=== PATIENT | female | born 1985 | race Caucasian/White ===

== ENCOUNTER 2016-04-10 19:14 | Emergency (ER) | payer MEDICAID ==
[2016-04-10] MEDS ORDERED: HYDROcod/ACETAM 5/325 MG TABLET PO STA (21:22)
[2016-04-10] MEDS ORDERED: HYDROcod/ACET 5/325 Prepack 6 PO ONE ×2 (21:22→21:37)
== END 2016-04-10 21:52 | disposition home or self-care (01) ==
DX: S96.911A Strain of unspecified muscle and tendon at ankle and foot level, right foot, initial encounter (principal); X50.9XXA Other and unspecified overexertion or strenuous movements or postures, initial encounter; Y93.01 Activity, walking, marching and hiking; Y92.410 Unspecified street and highway as the place of occurrence of the external cause; Y99.8 Other external cause status; Z87.891 Personal history of nicotine dependence

== ENCOUNTER 2017-06-16 08:52 | Outpatient (CLI) | payer MEDICAID ==
[2017-06-16 12:45] LABS: BASOPHILS % (AUTO) 0.5 %; EOSINOPHILS # (AUTO) 0.1 10^3/uL (0.0-0.7); EOSINOPHILS % (AUTO) 1.1 %; HGB - HEMOGLOBIN 13.4 g/dL (12.0-16.0); LYMPHOCYTES # (AUTO) 2.2 10^3/uL (1.5-3.5); LYMPHOCYTES % (AUTO) 27.5 %; MEAN CORPUSCULAR HEMOGLOBIN 29.2 pg (27.0-31.0); MEAN CORPUSCULAR HGB CONC 34.5 g/dL (32.0-36.0); MEAN CORPUSCULAR VOLUME 84.6 fL (81.0-99.0); MEAN PLATELET VOLUME 8.9 fL (7.9-10.8); MONOCYTES # (AUTO) 0.5 10^3/uL (0.0-1.0); MONOCYTES % (AUTO) 6.7 %; NEUTROPHILS % (AUTO) 64.2 %; PLT - PLATELET COUNT 224 10^3/uL (130-450); RED BLOOD COUNT 4.61 10^6/uL (4.20-5.40); RED CELL DISTRIBUTION WIDTH 13.9 % (12.0-15.0); WHITE BLOOD COUNT 7.8 x10^3/uL (4.8-10.8)
[2017-06-16 13:20] LABS: ALBUMIN 4.7 g/dL (3.2-5.5); ALBUMIN/GLOBULIN RATIO 1.5 (1.0-2.2); ALKALINE PHOSPHATASE 53 IU/L (42-121); ALT ALANINE AMINOTRANSFERASE 15 IU/L (10-60); AST ASPARTATE AMINOTRANSFERASE 19 IU/L (10-42); BILIRUBIN,TOTAL 0.5 mg/dL (0.2-1.0); BUN - BLOOD UREA NITROGEN 11 mg/dL (6-20); CALCIUM 9.4 mg/dL (8.5-10.3); CARBON DIOXIDE - CO2 25 mmol/L (21-32); CHLORIDE 107 mmol/L (101-111); CHOL/HDL RATIO 4.4 (<4.4); CHOLESTEROL 232 mg/dL; CREATININE 1.1 mg/dL (0.4-1.0); GFR - MDRD 58 (>89); GLUCOSE 74 mg/dL (70-100); HDL CHOLESTEROL 53 mg/dL; LDL CHOLESTEROL,CALCULATED 142 mg/dL; LDL/HDL RATIO 2.7 (<4.4); SODIUM 140 mmol/L (135-145); TOTAL PROTEIN 7.8 g/dL (6.7-8.2); VLDL CHOLESTEROL 37 mg/dL
== END 2017-06-16 08:53 | disposition home or self-care (01) ==
LOC: LAB.N 08:52
PROVIDERS: ATTEND Nurse Practitioner Gerontology
DX: Z13.9 Encounter for screening, unspecified (principal)
CPT/HCPCS: 36415; 80053; 80061; 83721; 84443; 85025

== ENCOUNTER 2018-03-06 21:37 | Outpatient (CLI) | payer MEDICAID | END 2018-03-06 21:38 | disposition critical access hospital (66) | LOC: EMS 21:37 | PROVIDERS: ATTEND Surgery | DX: M54.5 Low back pain (principal) | CPT/HCPCS: A0425; A0429; A0999 ==

== ENCOUNTER 2018-05-24 10:48 | Outpatient (CLI) | payer MEDICAID ==
[2018-05-24 11:27] LABS: BASOPHILS % (AUTO) 0.3 %; EOSINOPHILS # (AUTO) 0.1 10^3/uL (0.0-0.7); EOSINOPHILS % (AUTO) 1.5 %; HGB - HEMOGLOBIN 13.3 g/dL (12.0-16.0); LYMPHOCYTES % (AUTO) 27.8 %; MEAN CORPUSCULAR HEMOGLOBIN 28.1 pg (27.0-31.0); MEAN CORPUSCULAR HGB CONC 33.5 g/dL (32.0-36.0); MEAN CORPUSCULAR VOLUME 83.8 fL (81.0-99.0); MEAN PLATELET VOLUME 8.3 fL (7.9-10.8); MONOCYTES # (AUTO) 0.5 10^3/uL (0.0-1.0); MONOCYTES % (AUTO) 7.2 %; NEUTROPHILS # (AUTO) 4.5 10^3/uL (1.5-6.6); NEUTROPHILS % (AUTO) 63.2 %; PLT - PLATELET COUNT 244 10^3/uL (130-450); RED BLOOD COUNT 4.75 10^6/uL (4.20-5.40); RED CELL DISTRIBUTION WIDTH 15.4 % (12.0-15.0); WHITE BLOOD COUNT 7.1 x10^3/uL (4.8-10.8)
[2018-05-24 11:29] LABS: HCG UR QUAL NEGATIVE
== END 2018-05-24 10:49 | disposition home or self-care (01) ==
LOC: LAB 10:48
PROVIDERS: ATTEND Obstetrics & Gynecology
DX: Z01.812 Encounter for preprocedural laboratory examination (principal); N75.0 Cyst of Bartholin's gland
CPT/HCPCS: 36415; 81025; 85025

== ENCOUNTER 2018-05-26 10:08 | Day surgery (SDC) | payer MEDICAID ==
[2018-05-26] MEDS ORDERED: LACTATED RINGERS 1,000 ML IV ONE (10:13)
[2018-05-26 10:45] LABS: HCG UR QUAL NEGATIVE
--- NOTE | 2018-05-26 11:16 | ANESTHESIA ---
Pre-Anesthesia VS, & Labs - Diagnosis Recurrent bartholin's duct cyst - Procedure excision of bartholins duct cyst Vital Signs: Temp Pulse Resp BP Pulse Ox 36.8 C 92 12 121/83 H 96 05/26/18 10:32 05/26/18 10:32 05/26/18 10:32 05/26/18 10:32 05/26/18 10:32 Height 5 ft 6 in Weight (kg) 90 kg Body Mass Index 32.3 - NPO >8 hours - Is Patient ?: No - Lab Results Lab results reviewed: Yes Home Medications and Allergies Home Medications: Ambulatory Orders Naproxen 500 mg PO DAILY PRN 05/26/18 Sertraline [Zoloft] 200 mg ORAL DAILY 04/21/15 buPROPion [Wellbutrin Sr] 300 mg PO DAILY 03/06/18 Naproxen 500 mg PO DAILY PRN 05/26/18 Allergies/Adverse Reactions: Allergies Allergy/AdvReac Type Severity Reaction Status Date / Time No Known Drug Allergies Allergy Verified 05/25/18 09:40 Anes History & Medical History - Anesthetic History Anesthesia Complications: reports: No previous complications - Medical History Cardiovascular: reports: None Pulmonary: reports: None Gastrointestinal: reports: GERD (poorly controlled reflux) Urinary: reports: Frequency Neuro: reports: None Musculoskeletal: reports: None Endocrine/Autoimmune: reports: None Blood Disorders: reports: None Skin: reports: None Smoking Status: Former smoker (quit 2 years ago) Psychosocial: reports: Depression - Surgical History General: Other Urologic: Bladder surgery (Urethral surgery) Orthopedic: Other (ORIF R Ankle) Exam General: Alert, Oriented x3, Cooperative, No acute distress Dental: WNL Mouth Openin Fingerbreadth Neck Mobility: Normal Mallampati classification: II Thyromental Distance: 4-6 cm Respiratory: Lungs clear, Normal breath sounds, No respiratory distress, No accessory muscle use Cardiovascular: Regular rate, Normal S1, Normal S2, No murmurs Mental/Cognitive Status: Alert/Oriented X3, Normal for patient Plan Anesthesia Type: General Consent for Procedure(s) Verified and Reviewed: Yes Code Status: Attempt Resuscitation ASA classification: 2-Mild systemic disease Is this case an emergency?: No
[2018-05-26] MEDS ORDERED: FAMOTIDINE 20 MG/2 ML VIAL IVP ONE (11:40)
[2018-05-26] MEDS ORDERED: FAMOTIDINE IV 20 MG/50 ML IV ONE (12:00)
[2018-05-26] MEDS ORDERED: BUPIVACAINE 0.25%-EPI 1:200000 PF 30 ML VIAL ONE (12:08)
[2018-05-26] MEDS ORDERED: BUPIVACAINE 0.25%-EPI 1:200000 PF 30 ML VIAL SUBQ ONE (12:40)
[2018-05-26] MEDS ORDERED: ePHEDrine 50 MG/ML VIAL IVP ONE (13:10)
[2018-05-26] MEDS ORDERED: PROPOFOL 200 MG/20 ML VIAL IVP ONE (13:10)
[2018-05-26] MEDS ORDERED: ceFAZolin 1 GM VIAL IV ONE (13:10)
[2018-05-26] MEDS ORDERED: ONDANSETRON 4 MG/2 ML VIAL IVP ONE (13:10)
[2018-05-26] MEDS ORDERED: MIDAZOLAM 2 MG/2 ML VIAL IVP ONE (13:10)
[2018-05-26] MEDS ORDERED: LIDOCAINE-MPF 2% 5 ML VIAL IM ONE (13:10)
[2018-05-26] MEDS ORDERED: KETOROLAC 30 MG/ML VIAL IVP ONE (13:10)
[2018-05-26] MEDS ORDERED: DEXAMETHASONE 4 MG/ML VIAL IVP ONE (13:10)
[2018-05-26] MEDS ORDERED: fentaNYL 100 MCG/2 ML VIAL IVP ONE (13:10)
[2018-05-26] MEDS ORDERED: MEPERIDINE 50 MG/ML VIAL ONE (13:54)
[2018-05-26] MEDS ORDERED: HYDROmorphone 0.5 MG/0.5 ML SYRINGE IVP PRN (14:00)
[2018-05-26] MEDS ORDERED: oxyCODONE 5 MG TABLET PO PRN (14:00)
[2018-05-26] MEDS ORDERED: LORazepam 2 MG/ML VIAL IVP PRN (14:00)
[2018-05-26] MEDS ORDERED: ONDANSETRON 4 MG/2 ML VIAL IVP PRN (14:00)
[2018-05-26] MEDS ORDERED: HYDROcod/ACETAM 10 MG/325 MG TABLET PO PRN (14:00)
--- NOTE | 2018-05-26 14:06 | OPERATIVE REPORT ---
Operative Report - General Procedure Date: 05/26/18 Planned Procedure: Excision of Right Bartholins Duct cyst Pre-Op Diagnosis: Bartholins Duct cyst Procedure Performed: Excision of Right Bartholins Duct cyst Post Op Diagnosis: Bartholins Duct cyst - Procedure Note Primary Surgeon: Damaso Moore MD Anesthesia Provider: Tiburcio Murrieta CRNA Anesthesia Technique: General LMA Pathology: 2.4 cm right Barthonins Duct cyst. IV Fluids (mL): 700 Estimated Blood Loss (mL): 200 Complications: NONE - Other Other Information/Narrative: Right bartholinw Duct cyst. [id number]
[2018-05-26 14:51] VITALS: BP 122/86
--- NOTE | 2018-05-26 18:03 | OPERATIVE REPORT ---
DATE OF SERVICE: 05/26/2018 Physician: Damaso Moore MD PREOPERATIVE DIAGNOSIS: Recurrent right Bartholin gland duct cyst. POSTOPERATIVE DIAGNOSIS: Recurrent right Bartholin gland duct cyst. PROCEDURE PERFORMED: Excision of right Bartholin gland duct cyst. SURGEON: Damaso Moore MD ANESTHESIA: General via LMA. INTELLIGENT SYSTEMS ENGINEER: Dennise Murrieta CRNA. FINDINGS: The patient had a large right Bartholin gland duct cyst. It was roughly 2.5 cm in size. It was superficial near the skin. She also had a Bartholin gland duct cyst on the left hand side. I t was much smaller and very deep without evidence of it being near the surface. We were able to expr ess a large amount of purulent material from this, which was cultured. DESCRIPTION OF PROCEDURE: Following adequate general anesthesia via LMA, the patient was [facility] in t [facility] At this point, she was examined and the Bartholin gl and duct cyst was reevaluated. The right hand side was easily palpable as it was near the skin. The left hand side was very deep in the left lateral side. A moderate amount of purulent material was e xpressed through a duct cyst. At this point, she was prepped and draped in the usual fashion. An in cision was made on the right medial labia, following a local anesthesia with 0.25% Marcaine with epin ephrine. This was carried down to the cyst. The edges were grasped with Allises and then they were retracted. The cyst was not ruptured at this time. Then, using both blunt and sharp dissection, the cyst was dissected free from all of its attachments. The cyst only had about a 5 mm stalk. When it eventually ruptured, a brown clearish material was seen. This did not appear to be purulent. The c yst was then removed in toto. The area at the base was noted to have bleeding, so this was treated w ith three [id number] of 3-0 Vicryl with good hemostasis. The deep tissue was then closed utili zing 3-0 Vicryl and then the incision itself was closed using 3-0 Vicryl subcuticular. The area show ed no swelling or evidence of any kind of bleeding at that time. Attention was turned to the left Ba rtholin gland area. The purulent material had previously been expressed from this and so a duct cyst was nonpalpable. The area of the duct was attempted to be cannulated with a Word catheter; however, this was quite small and was unsuccessful. So this was ceased. The patient tolerated the procedure well and was taken to recovery in stable condition. Sponge and needle counts were correct. TD: 05/26/2018 14:30
== END 2018-05-26 10:09 | disposition home or self-care (01) ==
LOC: SDS 10:08
PROVIDERS: ATTEND Obstetrics & Gynecology
PROC: 0UBL0ZZ Excision of Vestibular Gland, Open Approach (ICD-10-PCS; principal; 2018-05-26 12:00)
DX: N75.0 Cyst of Bartholin's gland (principal); F32.9 Major depressive disorder, single episode, unspecified; F41.9 Anxiety disorder, unspecified; K21.9 Gastro-esophageal reflux disease without esophagitis
CPT/HCPCS: 56740; 81025; J2175; J7120; 87070; 87205